=== PATIENT | female | born 1965 | race Two or more races ===

== ENCOUNTER 2019-05-23 13:59 | Emergency (ER) | payer MEDICAID, OTHER ==
[~2019-05-23] VITALS: Ht 165.1 cm; Wt 72.6 kg
[~2019-05-23 13:59] MED LIST: CEPHALEXIN500 MG ORAL; OMEPRAZOLE20 M2 ORAL; PERI-COLACE TA1 EACH PO; TRAMADOL HCL50 MG ORAL; ZANTAC150 MG ORAL; ZOFRAN4 M3 ORAL
[2019-05-23 14:08] VITALS: BP 97/41
--- NOTE | 2019-05-23 14:08 | NUR ---
ED Nurse Note: PT BROUGHT IN BY [employer] FROM WORK. AOX4. PER EMS, PT C/O GENERALIZED BODY ACHE, 10/10 PAIN, AND LOW ENERGY X THIS MORNING. PT C/O NAUSEA AND VOMITING. ZOFRAN 8MG PO GIVEN BY EMS EN ROUTE. PT DENIES CHEST PAIN OR SOB.
[2019-05-23] MEDS ORDERED: LORazepam Inj 2mg/ml 1ml IV ONE ×2 (14:15→18:30)
--- NOTE | 2019-05-23 14:29 | NUR ---
ED Nurse Note: XRAY AT BEDSIDE.
[2019-05-23 14:37] LABS: BASOPHILS % (AUTO) 1.8 % (0.0-2.0); EOSINOPHILS % (AUTO) 5.8 % (0.0-3.0); HEMATOCRIT 42.6 % (37.0-47.0); HEMOGLOBIN 13.6 G/DL (12.0-16.0); LYMPHOCYTES % (AUTO) 38.7 % (20.0-45.0); MEAN CORPUSCULAR VOLUME 86 FL (80-99); MONOCYTES % (AUTO) 7.1 % (1.0-10.0); NEUTROPHILS % (AUTO) 46.6 % (45.0-75.0); PLATELET COUNT 263 K/UL (150-450); RED BLOOD COUNT 4.95 M/UL (4.20-5.40); RED CELL DISTRIBUTION WIDTH 12.4 % (11.6-14.8); WHITE BLOOD COUNT 10.7 K/UL (4.8-10.8)
[2019-05-23 14:48] LABS: ANION GAP 12 mmol/L (5-15); BLOOD UREA NITROGEN 18 mg/dL (7-18); CARBON DIOXIDE 22 MMOL/L (21-32); CHLORIDE 105 MMOL/L (98-107); CREATININE 0.7 MG/DL (0.55-1.30); POTASSIUM 2.9 MMOL/L (3.5-5.1); SODIUM 139 MMOL/L (136-145)
[2019-05-23 14:55] LABS: ALANINE AMINOTRANSFERASE 25 U/L (12-78); ALBUMIN 3.6 G/DL (3.4-5.0); ALBUMIN/GLOBULIN RATIO 1.1 (1.0-2.7); ALKALINE PHOSPHATASE 98 U/L (46-116); ASPARTATE AMINO TRANSFERASE 19 U/L (15-37); BILIRUBIN,TOTAL 0.3 MG/DL (0.2-1.0)
--- NOTE | 2019-05-23 15:00 | Emergency Room Report ---
History of Present Illness General Chief Complaint: General Complaint Source: Patient, EMS Present Illness HPI 53-year-old female presents ED for evaluation. Brought in by EMS. 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 States her heart was racing. Multiple episodes of vomiting. Notes generalized body pain. Dull, 7 out of 10, nonradiating. States that "she was stressed out". Denies alcohol or drug use. Denies SI or HI. Denies hearing voices. No other aggravating relieving factors. Denies any other associated symptoms Allergies: Coded Allergies: No Known Allergies (Unverified , 05/29/16) Patient History Past Medical History: HTN, asthma Past Surgical History: love Pertinent Family History: none Social History: Denies: smoking, alcohol use, drug use Last Menstrual Period: menopause Now: No Immunizations: UTD Reviewed Nursing Documentation: PMH: Agreed; PSxH: Agreed Nursing Documentation-PMH Hx Cardiac Problems: No Hx Hypertension: Yes Hx Asthma: Yes Hx Cancer: No Hx Gastrointestinal Problems: Yes - GALLSTONES REMOVED. Hx Neurological Problems: No Review of Systems All Other Systems: negative except mentioned in HPI Physical Exam Vital Signs Date Time Temp Pulse Resp B/P (MAP) Pulse Ox O2 Delivery O2 Flow Rate FiO2 05/23/19 14:02 98.8 85 16 99/55 (70) 99 Room Air Sp02 EP Interpretation: reviewed, normal General Appearance: alert, GCS 15, non-toxic, mild distress Head: normocephalic, atraumatic Eyes: bilateral eye normal inspection, bilateral eye PERRL ENT: hearing grossly normal, normal pharynx, no angioedema, normal voice Neck: full range of motion, supple/symm/no masses Respiratory: chest non-tender, lungs clear, normal breath sounds, speaking full sentences Cardiovascular #1: regular rate, rhythm, no edema Cardiovascular #2: 2+ carotid (R), 2+ carotid (L), 2+ radial (R), 2+ radial (L) , 2+ dorsalis pedis (R), 2+ dorsalis pedis (L) Gastrointestinal: normal bowel sounds, non tender, soft, non-distended, no guarding, no rebound Rectal: deferred Genitourinary: normal inspection, no CVA tenderness Musculoskeletal: back normal, gait/station normal, normal range of motion, non- tender Neurologic: alert, oriented x3, responsive, motor strength/tone normal, sensory intact, speech normal Psychiatric: judgement/insight normal, memory normal, mood/affect normal, no suicidal/homicidal ideation Reflexes: 3+ bicep (R), 3+ bicep (L), 3+ tricep (R), 3+ tricep (L), 3+ knee (R) , 3+ knee (L) Lymphatic: no adenopathy Medical Decision Making Diagnostic Impression: Primary Impression: Anxiety ER Course Hospital Course 53 yo F presents to ED c/o palpitations, generalized pain. Differential diagnoses include: ID/unstable angina, gastritis dehydration, anxiety Clinical course Patient placed on stretcher. 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 After initial history and physical I ordered labs, EKG, chest x-ray, ativan, zofran, pepcid labs reviewed- no leukocytosis, hemoglobin/hematocrit stable, troponins negative , electrolytes okay EKG - NSr, no acute ischemic changes interpreted by me CXR - no acute process On reassessment patient feeling better. Appears less anxious. Tolerating p.o. intake after few rounds of Zofran. Family at bedside states that patient has been experiencing increased stress due to work and she presents in similar fashion with crying, palpitations and vomiting. Safe for discharge for close outpatient follow-up. I will provide referrals I. I feel this is a highly complex case requiring extensive working including EKG/Rhythm strip, Xray/CT/US, Blood/urine lab work, repeat exams while in ED, and administration of strong opiates/narcotics for pain control, admission to hospital or close patient follow up. Diagnosis - anxiety Stable and discharged to home with Rx Xanax, zofran, zantac. Followup with PMD. Return to ED if symptoms recur or worse Labs Test 05/23/19 14:10 White Blood Count 10.7 K/UL (4.8-10.8) Red Blood Count 4.95 M/UL (4.20-5.40) Hemoglobin 13.6 G/DL (12.0-16.0) Hematocrit 42.6 % (37.0-47.0) Mean Corpuscular Volume 86 FL (80-99) Mean Corpuscular Hemoglobin 27.5 PG (27.0-31.0) Mean Corpuscular Hemoglobin Concent 31.9 G/DL (32.0-36.0) Red Cell Distribution Width 12.4 % (11.6-14.8) Platelet Count 263 K/UL (150-450) Mean Platelet Volume 8.3 FL (6.5-10.1) Neutrophils (%) (Auto) 46.6 % (45.0-75.0) Lymphocytes (%) (Auto) 38.7 % (20.0-45.0) Monocytes (%) (Auto) 7.1 % (1.0-10.0) Eosinophils (%) (Auto) 5.8 % (0.0-3.0) Basophils (%) (Auto) 1.8 % (0.0-2.0) Sodium Level 139 MMOL/L (136-145) Potassium Level 2.9 MMOL/L (3.5-5.1) Chloride Level 105 MMOL/L (98-107) Carbon Dioxide Level 22 MMOL/L (21-32) Anion Gap 12 mmol/L (5-15) Blood Urea Nitrogen 18 mg/dL (7-18) Creatinine 0.7 MG/DL (0.55-1.30) Estimat Glomerular Filtration Rate > 60 mL/min (>60) Glucose Level 187 MG/DL (74-106) Calcium Level 9.0 MG/DL (8.5-10.1) Total Bilirubin 0.3 MG/DL (0.2-1.0) Aspartate Amino Transf (AST/SGOT) 19 U/L (15-37) Alanine Aminotransferase (ALT/SGPT) 25 U/L (12-78) Alkaline Phosphatase 98 U/L (46-116) Troponin I 0.000 ng/mL (0.000-0.056) Total Protein 7.0 G/DL (6.4-8.2) Albumin 3.6 G/DL (3.4-5.0) Globulin 3.4 g/dL Albumin/Globulin Ratio 1.1 (1.0-2.7) Salicylates Level 0.8 ug/mL (2.8-20) Acetaminophen Level < 2 MCG/ML (10-30) Serum Alcohol < 3 mg/dL EKG Diagnostic Results Rate: normal Rhythm: NSR ST Segments: no acute changes ASA given to the pt in ED: No Rhythm Strip Diag. Results EP Interpretation: yes Rhythm: NSR, no PVC's, no ectopy Chest X-Ray Diagnostic Results Chest X-Ray Diagnostic Results : Chest X-Ray Ordered: Yes # of Views/Limited/Complete: 1 View Indication: Chest Pain EP Interpretation: Yes Interpretation: no consolidation, no effusion, no pneumothorax, no acute cardiopulmonary disease Impression: No acute disease Last Vital Signs Date Time Temp Pulse Resp B/P (MAP) Pulse Ox O2 Delivery O2 Flow Rate FiO2 05/23/19 14:08 98.6 64 12 97/41 100 Room Air Status: improved Disposition: HOME, SELF-CARE Condition: Stable Scripts Ranitidine Hcl* (ZANTAC*) 150 Mg Tablet 150 MG ORAL TWICE A DAY, #30 TAB Prov: Thomas Morel MD 05/23/19 Alprazolam* (XANAX*) 0.25 Mg Tablet 0.25 MG ORAL TID PRN for PRN Agitation/Anxiety, #10 TAB 0 Refills Prov: Thomas Morel MD 05/23/19 Ondansetron Odt* (ZOFRAN ODT*) 4 Mg Tab.rapdis 4 MG BC EVERY 8 HOURS, #10 TAB 0 Refills Prov: Thomas Morel MD 05/23/19 [facility]REFERR[facility] (PCP) Thomas Morel MD May 23, 2019 15:00
--- NOTE | 2019-05-23 15:02 | Diagnostic Imaging Report ---
Indication: Chest pain Comparison: None A single view chest radiograph was obtained. Findings: Mild pulmonary vascular congestion demonstrated. Heart size is normal. The bones are unremarkable. IMPRESSION: Pulmonary vascular congestion
[2019-05-23] MEDS ORDERED: XANAX0.25 MG ORAL (18:49)
[2019-05-23] MEDS ORDERED: RANITIDINE HCL150 MG ORAL (18:49)
[2019-05-23] MEDS ORDERED: ONDANSETRON ODT4 MG BC (18:49)
--- NOTE | 2019-05-23 18:58 | NUR ---
HAND-OFF: REPORT GIVEN TO ZULEIMA MEJIAS.
[2019-05-23 19:50] VITALS: BP 97/41
--- NOTE | 2019-05-23 19:50 | NUR ---
ER DISCHARGE NOTE: Patient is cleared to be discharged per ERMD, pt is aox4, on room air, with stable vital signs. pt was given dc and prescription instructions, pt was able to verbalize understanding, pt id band and iv site removed without complications. pt is able to ambulate with steady gait. pt took all belongings.
--- NOTE | 2019-05-28 19:58 | Cardiology Report ---
APPROVED REPORT EKG Measurement Heart [id number] Normal sinus rhythm Right bundle branch block Abnormal ECG
== END 2019-05-23 19:50 | disposition home or self-care (01) ==
LOC: EDBD 13:59 → EMR 14:20
DX: F41.9 Anxiety disorder, unspecified (principal); I10 Essential (primary) hypertension; J45.909 Unspecified asthma, uncomplicated; R07.9 Chest pain, unspecified
CPT/HCPCS: 36415; 71045; 80053; 84484; 85025; 93005; 96361; 96374; 96375; 96376; 99284; G0480; J2405; S0028; 80329; J8499